=== PATIENT | male | born 1980 | race American Indian/Alaskan Native ===

== ENCOUNTER 2020-11-10 09:29 | Emergency (ER) | payer OTHER ==
[2020-11-10 10:03] VITALS: BP 108/65
[2020-11-10 13:53] LABS: Basophils % (Auto) 0.5 % (0.0-1.8); Eosinophils # (Auto) 0.2 K/mm3 (0.0-0.4); Eosinophils % (Auto) 4.7 % (0.0-4.3); Hemoglobin 14.5 gm/dl (11.8-15.2); Lymphocytes # (Auto) 1.5 K/mm3 (1.2-5.4); Lymphocytes % (Auto) 29.8 % (13.4-35.0); Mean Corpuscular HGB Conc 34 % (32-34); Mean Corpuscular Volume 106 fl (84-94); Monocytes # (Auto) 0.5 K/mm3 (0.0-0.8); Monocytes % (Auto) 9.5 % (0.0-7.3); Platelet Count 230 K/mm3 (140-440); Red Blood Count 4.07 M/mm3 (3.65-5.03); Red Cell Distribution Width 12.8 % (13.2-15.2)
[2020-11-10 13:57] LABS: Bilirubin,Urine NEG (Negative); Blood,Urine SM (Negative); Color,Urine Yellow (Yellow); Protein,Urine <15 mg/dL mg/dL (Negative); Urobilinogen,Urine < 2.0 mg/dL (<2.0)
--- NOTE | 2020-11-10 13:59 | Emergency Department Report ---
ED Abdominal Pain HPI - General Chief Complaint: Abdominal Pain Stated Complaint: ABD PAIN PUI?: No Time Seen by Provider: 11/10/20 13:44 Source: patient Mode of arrival: Ambulatory Limitations: No Limitations - History of Present Illness Initial Comments: 40 YO AA MALE COMES IN WITH A/C PAIN OF HIS L INGUINAL HERNIA. HE STATES HE DOES NOT HAVE INSURANCE THUS HE HAS NOT GOTTEN CARE. CINDY EDUCATED HIM ON RISK OF INCARERATION AND DISCUSSED AT LENGTH RISK AND FOLLOW UP MD Complaint: abdominal pain -: year(s) Location: LLQ Radiation: none Migration to: no migration Severity: moderate Consistency: intermittent Improves With: nothing Worsens With: nothing Associated Symptoms: denies other symptoms - Related Data Previous Rx's Medication Instructions Recorded Last Taken Type Starch 51%(Nf) [Anusol] 1 each IN BID #12 supp.rect 08/14/13 Unknown Rx bisacodyL [Dulcolax] 5 mg PO DAILY #14 tab 08/14/13 Unknown Rx Allergies Allergy/AdvReac Type Severity Reaction Status Date / Time No Known Allergies Allergy Unverified 08/13/13 19:48 ED Review of Systems ROS: Stated complaint: ABD PAIN Other details as noted in HPI Comment: All other systems reviewed and negative ED Past Medical Hx - Past Medical History Previous Medical History?: Yes Additional medical history: hx of inguinal hernia x 12 years - Surgical History Past Surgical History?: No - Family History Family history: no significant - Social History Smoking Status: Never Smoker Substance Use Type: Alcohol - Medications Home Medications: Home Medications Medication Instructions Recorded Confirmed Last Taken Type Starch 51%(Nf) [Anusol] 1 each IN BID #12 supp.rect 08/14/13 Unknown Rx bisacodyL [Dulcolax] 5 mg PO DAILY #14 tab 08/14/13 Unknown Rx ED Physical Exam - General Limitations: No Limitations General appearance: alert, in no apparent distress - Head Head exam: Present: atraumatic, normocephalic - Eye Eye exam: Present: normal appearance - ENT ENT exam: Present: mucous membranes moist - Neck Neck exam: Present: normal inspection - Respiratory Respiratory exam: Present: normal lung sounds bilaterally. Absent: respiratory distress - Cardiovascular Cardiovascular Exam: Present: regular rate, normal rhythm. Absent: systolic murmur, diastolic murmur, rubs, gallop - GI/Abdominal GI/Abdominal exam: Present: soft, normal bowel sounds, other (non incarc l inguinal hernia) - Rectal Rectal exam: Present: deferred - Extremities Exam Extremities exam: Present: normal inspection - Back Exam Back exam: Present: normal inspection - Neurological Exam Neurological exam: Present: alert, oriented X3 - Psychiatric Psychiatric exam: Present: normal affect, normal mood - Skin Skin exam: Present: warm, dry, intact, normal color. Absent: rash ED Course Vital Signs 11/10/20 11/10/20 09:51 10:02 Temperature 98.2 F 98.2 F Pulse Rate 79 64 Respiratory 16 16 Rate Blood Pressure 155/100 108/65 [Right] O2 Sat by Pulse 100 98 Oximetry ED Medical Decision Making - Lab Data Result diagrams: 11/10/20 13:16 - Medical Decision Making Labs 11/10/20 11/10/20 13:16 13:50 WBC 5.0 RBC 4.07 Hgb 14.5 Hct 43.0 MCV 106 H MCH 36 H MCHC 34 RDW 12.8 L Plt Count 230 Lymph % (Auto) 29.8 [place] % (Auto) 9.5 H Eos % (Auto) 4.7 H Baso % (Auto) 0.5 Lymph # (Auto) 1.5 [place] # (Auto) 0.5 Eos # (Auto) 0.2 Baso # (Auto) 0.0 Seg Neutrophils % 55.5 Seg Neutrophils # 2.8 Urine Color Yellow Urine Turbidity Clear Urine pH 5.0 Ur Specific [place] 1.013 Urine Protein <15 mg/dl Urine Glucose (UA) Neg Urine Ketones Neg Urine Blood Sm Urine Nitrite Neg Urine Bilirubin Neg Urine Urobilinogen < 2.0 Ur Leukocyte Esterase Tr Urine WBC (Auto) 2.0 Urine RBC (Auto) 2.0 U Epithel Cells (Auto) < 1.0 Vital Signs 11/10/20 11/10/20 09:51 10:02 Temperature 98.2 F 98.2 F Pulse Rate 79 64 Respiratory 16 16 Rate Blood Pressure 155/100 108/65 [Right] O2 Sat by Pulse 100 98 Oximetry LABS NOTED ORDERED IN TRIAGE PT AMBULATORY AND NON ILL APPEARING NO FEVER NON INCARERATED L INGUINAL HERNIA. SCROTUM WNL ON EXAM PT EDUCATED ON CARE AND MANAGEMENT WELL NEEDED FOLLOW UP DC HOME WITH DC PLAN OF CARE. PT VERBALIZES UNDERSTANDING OF PLAN - Differential Diagnosis A/C HERNIA FOR 11 Y Critical care attestation.: If time is entered above; I have spent that time in minutes in the direct care of this critically ill patient, excluding procedure time. ED Disposition Clinical Impression: Hernia Disposition: DC-01 TO HOME OR SELFCARE Is pt being admited?: No Does the pt Need Aspirin: No Condition: Stable Instructions: Hernia, Adult, Hernia, Adult, [id number] Additional Instructions: FOLLOW UP WITH SURGEON/PCP WE DISCUSSED REFERRALS BELOW MOTRIN OR TYLENOL FOR PAIN Referrals: YESICA FLORES MD [Staff Physician] - 3-5 Days MAX ESPAÑA MD [Staff Physician] - 3-5 Days [facility] [Outside] - 3-5 Days Time of Disposition: 14:05
[2020-11-10 14:49] LABS: Alanine Aminotransferase 22 units/L (7-56); Albumin 4.7 g/dL (3.9-5); BUN/Creatinine Ratio 13; Blood Urea Nitrogen 14 mg/dL (9-20); Calcium 9.1 mg/dL (8.4-10.2); Hemolysis Index 7
== END 2020-11-10 14:25 | disposition home or self-care (01) ==
LOC: ED 09:29
DX: K40.90 Unilateral inguinal hernia, without obstruction or gangrene, not specified as recurrent (principal); Z79.899 Other long term (current) drug therapy
CPT/HCPCS: 36415; 80053; 81001; 83690; 85025